=== PATIENT | female | born 1965 | race Caucasian/White ===

== ENCOUNTER 2016-04-04 07:11 | Emergency (ER) | payer OTHER ==
[2016-04-04 07:29] VITALS: O2SAT 94
[2016-04-04] MEDS ORDERED: IBUPROFEN 600 MG TAB PO ONE ×2 (07:34→07:35)
--- NOTE | 2016-04-04 07:46 | EDPHY ---
H & P Stated Complaint: Head Injury / Lac Time Seen by Provider: 04/04/16 07:29 HPI/ROS: CHIEF COMPLAINT: Scalp laceration HISTORY OF PRESENT ILLNESS: Patient is a 50-year-old healthy female who comes to the emergency department for a scalp laceration. She dropped a barbell on her hand. She was exercising this morning and was holding it overhead when it slipped. It was exactly 35 lb. She did not lose consciousness. She denies headache or neck pain. She denies confusion or nausea or other concussion type symptoms. REVIEW OF SYSTEMS: Constitutional: denies: chills, fever, recent illness, recent injury EENTM: denies: blurred vision, double vision, nose congestion Respiratory: denies: cough, shortness of breath Cardiac: denies: chest pain, irregular heart rate, lightheadedness, palpitations Gastrointestinal/Abdominal: denies: abdominal pain, diarrhea, nausea, vomiting, blood streaked stools Genitourinary: denies: dysuria, frequency, hematuria, pain Musculoskeletal: denies: joint pain, muscle pain Skin: See HPI Neurological: denies: headache, numbness, paresthesia, tingling, dizziness, weakness Hematologic/Lymphatic: denies: blood clots, easy bleeding, easy bruising Immunologic/allergic: denies: HIV/AIDS, transplant EXAM: GENERAL: Well-appearing, well-nourished and in no acute distress. HEAD: large laceration scalp and forehead EYES: Pupils equal round and reactive to light, extraocular movements intact, sclera anicteric, conjunctiva are normal. ENT: TMs normal, nares patent, oropharynx clear without exudates. Moist mucous membranes. NECK: Normal range of motion, supple without lymphadenopathy or JVD. No spinal tenderness. no collar in place LUNGS: Breath sounds clear to auscultation bilaterally and equal. No wheezes rales or rhonchi. HEART: Regular rate and rhythm without murmurs, rubs or gallops. ABDOMEN: Soft, nontender, normoactive bowel sounds. No guarding, no rebound. No masses appreciated. BACK: No CVA tenderness, no spinal tenderness, step-offs or deformities EXTREMITIES: Normal range of motion, no pitting or edema. No clubbing or cyanosis. NEUROLOGICAL: Cranial nerves II through XII grossly intact. Normal speech, normal gait. 5/5 strength, normal movement in all extremities, normal sensation PSYCH: Normal mood, normal affect. SKIN: 10 cm crescent-shaped laceration over forehead and scalp. See diagram Source: Patient Exam Limitations: No limitations - Personal History LMP (Females 10-55): 8-14 Days Ago Current Tetanus Diphtheria and Acellular Pertussis (TDAP): Yes Tetanus Vaccine Date: < 10 YEARS - Medical/Surgical History Hx Asthma: No Hx Chronic Respiratory Disease: No Hx Diabetes: No Hx Cardiac Disease: No Hx Renal Disease: No Hx Cirrhosis: No Hx Alcoholism: No Hx HIV/AIDS: No Hx Splenectomy or Spleen Trauma: No Other PMH: C SECTIONS - Family History Significant Family History: No pertinent family hx - Social History Smoking Status: Never smoked Alcohol Use: Sober Drug Use: None Constitutional: Initial Vital Signs Temperature (C) 36.7 C 04/04/16 07:22 Heart Rate 78 04/04/16 07:22 Respiratory Rate 20 04/04/16 07:22 Blood Pressure 110/77 04/04/16 07:22 O2 Sat (%) 94 04/04/16 07:22 O2 Delivery Mode Room Air Allergies/Adverse Reactions: No Known Allergies Allergy (Unverified 09/24/15 17:24) Home Medications: Medication Instructions Recorded Albuterol [Proventil Inhaler HFA 2 puffs IH Q4 09/24/15 (*)] Fluticasone Hfa 110 Mcg [Flovent 2 puffs IH BID 09/24/15 110 MCG Hfa MDI (*)] Ibuprofen [Motrin (*)] 400 mg PO Q6 PRN 09/24/15 guaiFENesin/CODEINE PHOS 10 ml PO Q4 PRN 09/24/15 [Robitussin AC] Acetaminophen [Tylenol 325mg (*)] 650 mg PO Q4 PRN #0 tab 09/26/15 Azithromycin [Zithromax] 250 mg PO DAILY #5 tab 09/26/15 Cefuroxime Axetil [Ceftin (*)] 250 mg PO BID #10 tab 09/26/15 Pantoprazole Sodium [Protonix 40mg 40 mg PO DAILY #30 tab 09/26/15 (*)] guaiFENesin [Mucinex 600 MG (*)] 1,200 mg PO BID #0 tab.er 09/26/15 predniSONE 40 mg PO DAILY #6 tablet 09/26/15 ED Images - Head Head Front/Back: 1 - 10 cm crescent-shaped laceration . Does not involve the galea. 2 - Continuation of laceration 1. 3 - Continuation laceration 1 and 2. Medical Decision Making - Diagnostics Imaging: Results: CT scan of the head was obtained. The results of the study are negative. The study was read by Dr. Banerjee. I viewed the images myself on the PACS system. Procedures: Procedure: Laceration repair. Verbal consent was obtained from the patient. The 10 cm scalp laceration was anesthetized with 1% lidocaine with epi and bicarbonate locally infiltrated. The wound was irrigated copiously according to protocol, draped and explored to its base. It was approximately 1 cm deep. There were no deep structures involved. No tendon, nerve, or vascular injury was identified when explored through full range of motion. No foreign body was identified. The wound was repaired with 19 noé in the hairline, and 4 subcutaneous sutures 5.0 Vicryl wrapped Peed interrupted, as well as Dermabond over the forehead visible portion of her scan. The wound repair was complex with flap realignment and multiple technique. The procedure was performed by myself. A dressing was then placed with sterile gauze. ED Course/Re-evaluation: We discussed the CT results. Patient tolerated wound repair well. She is happy with this and declines further workup or testing. We discussed concussions in post concussion treatment although she currently is not exhibiting any symptoms. She and her understand agree with this plan. Additional verbal discharge instructions given. Differential Diagnosis: Partial list of the Differential diagnosis considered include but were not limited to; scalp laceration, fracture, concussion and although unlikely based on the history and physical exam, I also considered cervical spine injury, assault. I discussed these differential diagnoses and the plan with the patient as well as the usual and expected course. The patient understands that the diagnosis is provisional and that in medicine we are not always correct and that further workup is often warranted. Usual and customary warnings were given. All of the patient's questions were answered. The patient was instructed to return to the emergency department should the symptoms at all worsen or return, otherwise to followup with the physician as we discussed. - Data Points Medications Given: Discontinued Medications Ibuprofen (Motrin) 600 mg PO EDNOW ONE Stop: 04/04/16 07:35 Last Admin: 04/04/16 07:37 Dose: 600 mg Octyl Cyanoacrylate (Dermabond) 2 each TP EDNOW ONE Stop: 04/04/16 07:58 Last Admin: 04/04/16 08:00 Dose: 2 each Departure - Departure Disposition: Home, Routine, Self-Care Clinical Impression: Laceration Condition: Fair Instructions: Laceration (ED) Additional Instructions: Have your noé removed in 10 days. The sutures in your forehead and the glue will gladly dissolve spontaneously. Referrals: Alma Hayes PA [Primary Care Provider] - As per Instructions
[2016-04-04] MEDS ORDERED: SKIN ADHESIVE (DERMABOND) 1 EACH TP ONE ×2 (07:54→07:57)
--- NOTE | 2016-04-04 09:25 | CT ---
CT Scan of the Head (Without Contrast) Clinical Indications: 50-year-old female with cephalgia after a barbell hit her head today, sustaini ng a large laceration. The patient denies any dizziness at this time. Rule out acute intracranial abn ormality. Technique: Axial CT images were acquired from the foramen magnum through the skull vertex, without i ntravenous contrast. Soft tissue, subdural, and bone windows were reviewed on the computer workstati on. Images were reformatted at 5.0 and 1.50 mm increments, and are reformatted in sagittal and coron al planes. DFOV is 25.0 cm. Dose reduction techniques were utilized. Comparison Study: None. Findings: There are skin noé over the anterior/superior scalp at the site of the laceration, with some beam hardening artifact. There are no intracranial mass lesions identified, and there is no blaine dence of an acute or subacute intracranial hemorrhage, or an acute infarct. The ventricles and subar achnoid spaces are normal in size for this age group. The bone windows reveal no sign of a fracture. The visualized paranasal sinuses and mastoid air cells are free of fluid. Minimal mucosal thickenin g in the floor of each maxillary sinus is seen. The craniocervical junction, sella turcica, pineal gl and, and the orbits are unremarkable. If there is continuing clinical concern regarding the patient's symptoms, MR imaging could be considered, if otherwise not contraindicated. Impression: Status post skin stapling for an anterior scalp laceration, with no acute fracture or in tracranial abnormality. Results were called to Dr. Francis Pickett. A test result has been communicated to a licensed care provider and documented in [employer], 9:21:01 AM , 04/04/2016, [employer] Message ID [id number].
[2016-04-04 09:53] VITALS: BP 115/72; PULSE 63; RESP 18; TEMP 97.9
== END 2016-04-14 11:45 | disposition home or self-care (01) ==
PROC: 0JQ00ZZ Repair Scalp Subcutaneous Tissue and Fascia, Open Approach (ICD-10-PCS; principal; 2016-04-04)
DX: S01.01XA Laceration without foreign body of scalp, initial encounter (principal); W20.8XXA Other cause of strike by thrown, projected or falling object, initial encounter; Y93.B3 Activity, free weights

== ENCOUNTER → 2017-11-14 | Outpatient (CLI) | payer OTHER | DX: Z12.31 Encounter for screening mammogram for malignant neoplasm of breast (principal) ==